=== PATIENT | male | born 1980 | race African-American/Black ===

== ENCOUNTER 2021-04-19 11:05 | Emergency (ER) | payer OTHER ==
[~2021-04-19] VITALS: Ht 190.5 cm; Wt 124.5 kg
[2021-04-19] MEDS ORDERED: SYNT175T2 PO (11:12)
[2021-04-19] MEDS ORDERED: KETOROLAC 60MG 2ML VIAL IM ONE (14:00)
[2021-04-19] MEDS ORDERED: ACETAMINOPHEN 500 MG TAB PO ONE (14:00)
--- NOTE | 2021-04-19 14:51 | REP ---
INDICATION: cervical radiculopathy. COMPARISON: None. TECHNIQUE: Lateral, open-mouth odontoid, and AP views of the cervical spine are provided. FINDINGS: Lateral radiograph demonstrates straightening and slight reversal of the normal cervical lordosis. Cervical vertebral body heights are preserved. Disc spaces are maintained. Alignment is otherwise normal. Prevertebral soft tissues are not widened. AP and open-mouth odontoid views are unremarkable. There are fixation plates in the anterior aspect of the mandible on the right side. A spina bifida occulta is noted incidentally at the T1 vertebral body level. There is a minimal levoconvex curvature at the cervicothoracic junction. IMPRESSION: Straightening and mild levoconvex cervicothoracic junction curvature. No acute abnormality. Status post mandibular surgical fixation plating on the right. <Electronically signed by Jacky Luciano > 04/19/21 [id number]
[2021-04-19] MEDS ORDERED: CYCL-707 PO (15:30)
[2021-04-19] MEDS ORDERED: INDO50CA91 PO (15:30)
[2021-04-19 15:35] VITALS: BP 152/88
== END 2021-04-19 15:43 | disposition home or self-care (01) ==
LOC: M ED 11:05
DX: S16.1XXA Strain of muscle, fascia and tendon at neck level, initial encounter (principal); M62.838 Other muscle spasm; X58.XXXA Exposure to other specified factors, initial encounter; Y92.9 Unspecified place or not applicable; Y93.9 Activity, unspecified; Y99.9 Unspecified external cause status; E03.9 Hypothyroidism, unspecified; Z79.890 Hormone replacement therapy; Z79.899 Other long term (current) drug therapy
CPT/HCPCS: 72040; 96372; 99284; J1885

== ENCOUNTER → 2022-01-19 | Outpatient (CLI) | payer OTHER ==
[~2022-01-19] MED LIST: CYCL-707 PO; INDO50CA91 PO; SYNT175T2 PO
== END ==
LOC: M LAB 12:56
PROVIDERS: ATTEND Ophthalmology
DX: E07.89 Other specified disorders of thyroid (principal)

== ENCOUNTER 2022-10-02 13:59 | Emergency (ER) | payer OTHER ==
[~2022-10-02] VITALS: Ht 188 cm; Wt 131.1 kg
[2022-10-02 15:52] LABS: BASO % 0.8 % (0.0-1.0); EOS % 0.3 % (0.0-3.0); HEMATOCRIT 41.2 % (42.0-52.0); HEMOGLOBIN 14.3 g/dl (13.5-17.5); LYMPH # 1.9 10^3/uL (1.5-5.0); LYMPH % 53.2 % (24.0-44.0); MEAN CORPUSCULAR HEMOGLOBIN 26.5 pg (27.0-33.0); MEAN CORPUSCULAR HGB CONC 34.7 g/dl (32.0-36.5); MEAN CORPUSCULAR VOLUME 76.3 fl (80.0-96.0); MONO # 0.5 10^3/uL (0.0-0.8); MONO % 12.5 % (2.0-8.0); NEUTROPHILS # 1.2 10^3/uL (1.5-8.5); NEUTROPHILS % 33.2 % (36.0-66.0); PLATELET COUNT, AUTOMATED 251 10^3/uL (150-450); WHITE BLOOD COUNT 3.6 10^3/uL (4.0-10.0)
[2022-10-02 16:16] LABS: CK-MB VALUE MASS < 1.0 NG/ML (<3.6); LIPASE 41 U/L (12-53)
[2022-10-02 16:18] LABS: ALBUMIN 3.9 G/DL (3.2-5.2); ALKALINE PHOSPHATASE 56 U/L (46-116); ALT/SGPT 137 U/L (7.0-40); AST/SGOT 77 U/L (<34); BILIRUBIN,DIRECT 0.3 MG/DL (<0.4); BILIRUBIN,TOTAL 0.8 MG/DL (0.3-1.2); BLOOD UREA NITROGEN 9 MG/DL (9-23); CALCIUM LEVEL 9.3 MG/DL (8.5-10.1); CARBON DIOXIDE LEVEL 31 MMOL/L (20-31); CHLORIDE LEVEL 105 MMOL/L (98-107); CREATININE FOR GFR 1.04 MG/DL (0.70-1.30); GLOMERULAR FILTRATION RATE > 60.0 (>60); GLUCOSE, FASTING 93 MG/DL (60-100); POTASSIUM SERUM 4.3 MMOL/L (3.5-5.1); SODIUM LEVEL 140 MMOL/L (136-145); TOTAL PROTEIN 6.9 G/DL (5.7-8.2)
[2022-10-02 16:19] LABS: CPK CREATINE PHOSPHOKINASE 106 U/L (46-171); MB/CK RELATIVE INDEX 0.94 (< OR =4)
[2022-10-02 17:27] VITALS: BP 150/85
== END 2022-10-02 17:28 | disposition home or self-care (01) ==
LOC: M ED 13:59
DX: R07.89 Other chest pain (principal); D70.9 Neutropenia, unspecified